=== PATIENT | female | born 1995 | race Caucasian/White ===

== ENCOUNTER → 2017-11-30 | Outpatient (CLI) | payer OTHER ==
[~2017-11-30] MED LIST: GADOBUTROL 10 ML VIAL IVP ONE
== END ==
LOC: FIMAGING 11:14
DX: H53.19 Other subjective visual disturbances (principal)
CPT/HCPCS: A9585

== ENCOUNTER → 2017-12-11 | Outpatient (CLI) | payer OTHER | LOC: FIMAGING 06:57 | PROVIDERS: ATTEND Physician Assistant Medical | DX: H46.10 Retrobulbar neuritis, unspecified eye (principal); G37.9 Demyelinating disease of central nervous system, unspecified; H54.7 Unspecified visual loss | CPT/HCPCS: A9585 ==

== ENCOUNTER → 2018-04-20 | Outpatient (CLI) | payer OTHER | LOC: FIMAGING 09:46 | PROVIDERS: ATTEND Physician Assistant Medical | DX: G37.9 Demyelinating disease of central nervous system, unspecified (principal) | CPT/HCPCS: A9585 ==

== ENCOUNTER → 2018-12-07 | Outpatient (CLI) | payer OTHER | LOC: FIMAGING 13:51 ==